=== PATIENT | male | born 1960 | race Caucasian/White ===

== ENCOUNTER 2018-10-22 10:56 | Emergency (ER) | payer OTHER, MEDICAID ==
[~2018-10-22] VITALS: Ht 180.3 cm; Wt 107.5 kg
[~2018-10-22 10:56] MED LIST: ADULT LOW DOSE81 MG PO; ASPIRIN325; CRESTOR40 MG PO; LEVAQUIN 500 M500 MG PO; LEXAPRO 10 MG T10 M1 PO; LEXAPRO 10 MG T10 M2; LISINOPRIL10 MG PO; LOPRESSOR100 M1 PO; NITROGLYCERIN0.3 MG SL; PLAVIX 75 MG TA75 MG PO; PRINIVIL10 MG PO; TOPROL XL 100M100 M1 PO; TRICOR145 MG PO; XANAX 0.5 MG0.5 MG PO; ZOCOR40 MG PO
[2018-10-22 11:41] LABS: ABSOLUTE BASOPHILS 0.1 thou/uL (0.0-0.2); ABSOLUTE EOSINOPHILS 0.1 thou/uL (0.0-0.7); ABSOLUTE LYMPHOCYTES 1.4 thou/uL (0.8-5.3); ABSOLUTE MONOCYTES 0.7 thou/uL (0.0-1.2); ABSOLUTE NEUTROPHILS 7.8 thou/uL (1.6-8.1); BASOPHILS 0.5 %; EOSINOPHILS 0.9 %; HEMATOCRIT 45.2 % (42.0-52.0); HEMOGLOBIN 15.2 gm/dL (14.0-18.0); LYMPHOCYTES 14.1 %; MCH 30.1 pg (26.0-34.0); MCHC 33.7 g/dL (28.0-37.0); MCV 89.4 fL (80.0-100.0); MONOCYTES 6.5 %; MPV 6.4 fl. (7.2-11.1); NUCLEATED RBCS 0 /100WBC; PLATELET COUNT* 331 thou/uL (150-400); RBC 5.05 mil/uL (4.50-6.00); RDW-CV 14.7 % (10.5-14.5)
[2018-10-22 11:49] LABS: ANION GAP 10 mmol/L (7-16); BUN 14 mg/dL (7-18); CALCIUM 9.4 mg/dL (8.5-10.1); CHLORIDE 102 mmol/L (98-107); CO2 26 mmol/L (21-32); CREATININE 0.9 mg/dL (0.6-1.3); GLUCOSE 105 mg/dL (70-99); POTASSIUM 4.2 mmol/L (3.5-5.1); SODIUM 138 mmol/L (136-145)
[2018-10-22 12:01] LABS: ALBUMIN 3.6 g/dL (3.4-5.0); ALKALINE PHOSPHATASE 136 U/L (46-116); SGOT 22 U/L (15-37); SGPT 40 U/L (30-65); TOTAL BILIRUBIN 0.9 mg/dL (<0.1-1.0); TOTAL PROTEIN 7.4 g/dL (6.4-8.2); TROPONIN-I LEVEL <0.06 ng/mL (<0.06)
[2018-10-22 12:28] LABS: URINE BILIRUBIN NEGATIVE (Negative); URINE BLOOD NEGATIVE (Negative); URINE CLARITY CLEAR; URINE COLOR YELLOW; URINE GLUCOSE-RANDOM NEGATIVE (Negative); URINE KETONES NEGATIVE (Negative); URINE LEUKOCYTES-REFLEX NEGATIVE (Negative); URINE NITRITE-REFLEX NEGATIVE (Negative); URINE PROTEIN NEGATIVE (Negative); URINE SPECIFIC GRAVITY >= 1.030 (1.005-1.030); URINE UROBILINOGEN 0.2 E.U./dl (0.2-1.0)
[2018-10-22 12:38] LABS: URINE COLOR ND
[2018-10-22 12:40] LABS: URINE CLARITY ND; URINE SPECIFIC GRAVITY ND (1.005-1.030)
[2018-10-22 12:41] LABS: URINE GLUCOSE-RANDOM ND (Negative); URINE PROTEIN ND (Negative)
[2018-10-22 12:42] LABS: URINE KETONES ND (Negative)
[2018-10-22 12:45] LABS: URINE BILIRUBIN ND (Negative)
[2018-10-22 12:46] LABS: URINE BLOOD ND (Negative); URINE LEUKOCYTES-REFLEX ND (Negative); URINE NITRITE-REFLEX ND (Negative); URINE UROBILINOGEN ND E.U./dl (0.2-1.0)
[2018-10-22 15:30] VITALS: BP 138/75
--- NOTE | 2018-10-22 16:04 | EKG ---
[place] [address] ELECTROCARDIOGRAM REPORT Name: KASSIDY WILD [id number] Admission: 10/22/18 Attend Phys: Discharge: 10/22/18 Date of : 56 Report #: [id number] THIS REPORT FOR: //name// [facility] ED Test Date: 2018-10-22 Test Time: 11:44:53 Pat Name: KASSIDY WILD Department: Room: Gender: M [employer]er: : 1960 Requested By: Shanique Tirado Order Number: [id number] MD: Chilango Ford Measurements Intervals [place] Rate: 77 P: 30 GA: 201 QRS: 24 QRSD: 91 T: -4 QT: 375 QTc: 425 Interpretive Statements Sinus rhythm Abnormal R-wave progression, early transition ST depression, consider ischemia, lateral lds Borderline ST elevation, inferior leads Baseline wander in lead(s) I Compared to ECG 03/17/2016 21:07:42 ST (T wave) deviation now present Possible ischemia now present First degree AV block no longer present Electronically Signed On 10-22-2018 16:04:31 CDT by Chilango Ford [email or web address] <ELECTRONICALLY SIGNED> By: Chilango Ford MD, [facility] 10/22/18 1604 [id number] [id number] Chilango Ford MD, [facility] /EPI
== END 2018-10-22 15:30 | disposition home or self-care (01) ==
LOC: M.ERS 10:56
PROVIDERS: Nurse Practitioner Family
DX: I10 Essential (primary) hypertension (principal); E78.00 Pure hypercholesterolemia, unspecified; F32.9 Major depressive disorder, single episode, unspecified; Z95.5 Presence of coronary angioplasty implant and graft